=== PATIENT | male | born 1995 | race Caucasian/White ===

== ENCOUNTER → 2024-10-27 | Outpatient (REF) | payer OTHER | LOC: M SMT 13:04 | PROVIDERS: ATTEND Urology | DX: Z30.2 Encounter for sterilization (principal) ==

== ENCOUNTER → 2024-12-29 | Outpatient (REF) | payer OTHER ==
[2024-12-29 14:30] LABS: SEMEN APPEARANCE OPAQUE (OPAQUE); SEMEN VISCOSITY LIQUID (LIQUID); SEMEN VOLUME 3.2 ml (2.0-5.0); WBC CONCENTRATION <=1 M/ml (<=1 M/ml)
== END ==
LOC: M SMT 14:20
PROVIDERS: ATTEND Urology
DX: Z30.8 Encounter for other contraceptive management (principal)

== ENCOUNTER → 2025-02-15 | Outpatient (CLI) | payer OTHER | LOC: M PLAIMG 13:38 | DX: G44.84 Primary exertional headache (principal) ==